=== PATIENT | female | born 1950 | race Caucasian/White ===

== ENCOUNTER → 2016-12-24 | Outpatient (CLI) | payer BC ==
[~2016-12-24] MED LIST: CHOL100010 PO; CHOL4POW4 PO; LUTE15CA PO; METH500T3 PO; SYN112 PO; VSC/10 PO; VTMB12UNK PO; [UNRECOGNIZED DRUG - CODE] TOP
[2016-12-24 09:27] LABS: CHOLESTEROL/HDL RATIO 2.8; THYROID STIMULATING HORMONE 0.733 uIu/ml (0.300-4.500)
== END | disposition home or self-care (01) ==
LOC: C.LAB 07:36
PROVIDERS: ATTEND Family Medicine
DX: E03.4 Atrophy of thyroid (acquired) (principal); Z13.1 Encounter for screening for diabetes mellitus; E78.5 Hyperlipidemia, unspecified